=== PATIENT | male | born 1995 | race Caucasian/White ===

== ENCOUNTER 2022-07-01 17:56 | Emergency (ER) | payer OTHER ==
[2022-07-01 18:35] VITALS: BP 138/75; PULSE 78; RESP 18; TEMP 98.3
[2022-07-01] MEDS ORDERED: LIDOCAINE 1% INJ 10MG/ML (20 ML MDV) SQ ONE (19:22)
[2022-07-01] MEDS ORDERED: MORPHINE SULFATE 4 MG/ML SYRINGE IM STA (19:22)
--- NOTE | 2022-07-01 19:58 | XR ---
EXAMINATION TYPE: XR tibia fibula RT DATE OF EXAM: 07/01/2022 7:39 PM INDICATION: Patient age:Male; 26 years old; Reason for study: laceration; PHH. COMPARISON: None TECHNIQUE: The right tibia/fibula was examined in AP and lateral projections. FINDINGS: No evidence of any acute osseous pathology, joint dislocation, or soft tissue swelling is n oted. Bandage over the posterior calf on the right. No evidence of radiopaque foreign body. IMPRESSION: 1. No evidence of acute fracture. 2. Soft tissue injury not as well visualized on radiography, no radiopaque foreign body.
--- NOTE | 2022-07-01 21:06 | ED ---
Lower Extremity Injury HPI - General Chief Complaint: Extremity Injury, Lower Stated Complaint: leg lac Time Seen by Provider: 07/01/22 19:16 Source: patient, RN notes reviewed Mode of arrival: ambulatory Limitations: no limitations - History of Present Illness Initial Comments: Patient is 26-year-old male presenting to the emergency room with a large laceration to his right lower extremity which she reports he obtained while moving furniture around in a room and walking into an open pocket knife. He reports that the laceration bled significantly and a tight bandage was applied. After the bandage was applied he did have some mild numbness and tingling. He denies any range of motion impairment. He denies any concern of foreign object or bone injury from the laceration. Overall he is healthy and does not take any medications on a regular basis. He reports that his tetanus vaccination is up-to-date. - Related Data Allergies Allergy/AdvReac Type Severity Reaction Status Date / Time Penicillins Allergy Swelling Verified 07/01/22 18:36 Review of Systems ROS Statement: Those systems with pertinent positive or pertinent negative responses have been documented in the HPI. ROS Other: All systems not noted in ROS Statement are negative. Past Medical History Past Medical History: No Reported History History of Any Multi-Drug Resistant Organisms: None Reported Past Surgical History: Adenoidectomy Smoking Status: Vaper Past Alcohol Use History: None Reported Past Drug Use History: None Reported General Exam General appearance: alert, in no apparent distress Head exam: Present: atraumatic, normocephalic, normal inspection Eye exam: Present: normal appearance, PERRL, EOMI. Absent: scleral icterus, conjunctival injection, periorbital swelling ENT exam: Present: normal exam, mucous membranes moist Neck exam: Present: normal inspection, full ROM Respiratory exam: Absent: respiratory distress, accessory muscle use Cardiovascular Exam: Present: regular rate GI/Abdominal exam: Absent: distended Right Lower Leg exam: Present: full ROM, tenderness, laceration (Large laceration to right calf starting at the mid leg spanning medially approximately 10 cm in length with muscle exposed. No evidence of tendon exposure, muscle laceration or vessel laceration). Absent: swelling, deformity, crepitus, dislocation Neurovascular tendon exam: Present: no vascular compromise. Absent: pulse deficit, abnormal cap refill, motor deficit, sensory deficit, tendon deficit Gait: observed and limited by pain Back exam: Present: normal inspection Neurological exam: Present: alert, oriented X3, CN II-XII intact Psychiatric exam: Present: normal affect, normal mood Skin exam: Present: other (laceration as above) Course Vital Signs 07/01/22 18:30 Temperature 98.3 F Pulse Rate 78 Respiratory 18 Rate Blood Pressure 138/75 O2 Sat by Pulse 96 Oximetry Procedures - Laceration Laceration #1 Consent Obtained: verbal consent Indication: laceration Site: lower extremity Size (cm): 10 Description: linear Depth: simple, single layer (Deep to but not through muscle layer) Anesthesia Technique: local infiltration Pre-repair: wound explored, irrigated extensively Type of Sutures: nylon Size of Sutures: 4-0 Number of Sutures: 24 Technique: simple, interrupted Patient Tolerated Procedure: well, no complications Medical Decision Making - Medical Decision Making 26-year-old male presenting to the emergency room with large laceration to left lower extremity due to depth of laceration and awkward mechanism of action will check x-ray of the tibia-fibula to rule out any foreign objects or bone chips. X-ray negative for fracture. Tetanus up-to-date. No indication for antibiotics. No evidence of neurovascular compromise. Will proceed with suture closure. Patient tolerated laceration closure well without complications. Wound care discussed at length. Patient encouraged to follow-up with his primary care provider or return to the emergency room for suture removal in 10 days. Case discussed with Dr. Martinez. - Radiology Data Radiology results: report reviewed, image reviewed X-ray tibia-fibula right impression no evidence of acute fracture. Soft tissue injury not as well-visualized on radiographic, no radiopaque foreign body. Disposition Clinical Impression: Laceration of right lower leg without complication Disposition: HOME SELF-CARE Condition: Good Instructions (If sedation given, give patient instructions): Laceration (ED) Additional Instructions: Please keep wound clean and dry. Monitor for signs and symptoms of infection and seek medical attention as appropriate if symptoms occur. Please follow-up with your primary care provider for suture removal in 7-10 days. Please return to the Emergency Department if symptoms worsen or any other concerns. Is patient prescribed a controlled substance at d/c from ED?: No Referrals: None,Stated [Primary Care Provider] - 1-2 days Time of Disposition: 21:05
== END 2022-07-01 21:14 | disposition home or self-care (01) ==
LOC: EC 17:56
DX: S81.811A Laceration without foreign body, right lower leg, initial encounter (principal); F17.290 Nicotine dependence, other tobacco product, uncomplicated; Z88.0 Allergy status to penicillin; W26.0XXA Contact with knife, initial encounter; Y92.009 Unspecified place in unspecified non-institutional (private) residence as the place of occurrence of the external cause
CPT/HCPCS: 73590; 96372; 12004; 99283; J2270; J2001